=== PATIENT | male | born 1985 | race African-American/Black ===

== ENCOUNTER 2018-08-08 10:58 | Inpatient (IN) ==
[2018-08-08] MEDS ORDERED: FUROSEMIDE 100 MG/10 ML VIAL IV STA (12:01)
[2018-08-08] MEDS ORDERED: FUROSEMIDE 20 MG/2 ML VIAL ONE (12:12)
[2018-08-08] MEDS ORDERED: FUROSEMIDE 40 MG/4 ML VIAL ONE (12:12)
[2018-08-08] MEDS ORDERED: hydrALAZINE 20 MG/1 ML VIAL IV STA (12:12)
[2018-08-08] MEDS ORDERED: hydrALAZINE 20 MG/1 ML VIAL ONE (12:12)
[2018-08-08 12:35] LABS: Basophils % 0.1 % (0.0-0.8); Eosinophils # 0.2 10*3/uL (0.0-0.87); Eosinophils % 2.5 % (0.00-10.9); Hemoglobin 10.7 GM/DL (14.0-18.0); Immature Granulocytes % 0.5 %; Immature Granulocytes Absolute 0.04 #; Lymphocytes # 1.6 10*3/uL (1.4-4.0); Lymphocytes % 19.8 % (21.2-54.2); Mean Corpuscular HGB Conc 28.9 GM/DL (32-36); Mean Corpuscular Hemoglobin 22 PG (27-34); Mean Corpuscular Volume 77.2 FL (87-102); Mean Platelet Volume 10.8 FL (9.6-12.0); Monocytes # 0.6 10*3/uL (0.11-0.8); Monocytes % 7.2 % (1.7-12.7); Neutrophils # 5.6 10*3/uL (1.4-7.4); Neutrophils % 69.9 % (38.7-73.9); Platelet Count 299 T/CUMM (130-400); Red Blood Count 4.79 MC/CUMM (3.8-5.5); White Blood Count 7.9 T/CUMM (4-12)
[2018-08-08 12:36] LABS: Bilirubin,Total 0.7 MG/DL (0.2-1.0); Calcium 8.4 MG/DL (8.5-10.1); Osmolality,Calculated 276.5 MOS/KG (273-304); Potassium 4.1 MMOL/L (3.5-5.1); Total Protein 8.4 G/DL (6.4-8.3)
[2018-08-08] MEDS ORDERED: niCARdipine 25 MG/10 ML VIAL IV ONE ×2 (13:36→16:22)
[2018-08-08] MEDS: niCARdipine INJ 25 MG in SODIUM CHLORIDE 0.9% 240 ML IV SCH (13:41)
[2018-08-08] MEDS ORDERED: ONDANSETRON 4 MG/2 ML VIAL IV PRN (15:47)
[2018-08-08] MEDS ORDERED: ACETAMINOPHEN 325 MG TABLET PO PRN (15:47)
[2018-08-08] MEDS: niCARdipine INJ 25 MG in SODIUM CHLORIDE 0.9% 240 ML IV PRN ×2 (16:30→22:15)
[2018-08-08] MEDS ORDERED: ALBUTEROL 2.5 MG/3 ML NEB RESP TX PRN (16:53)
[2018-08-09 03:20] LABS: Apearance,Urine CLEAR (Clear); Bilirubin,Urine Negative (Negative); Blood, Urine Negative (Negative); Glucose,Urine (UA) Negative (Negative); Ketones,Urine Negative (Negative); Nitrite,Urine Negative (Negative); Protein,Urine Negative; RBC,Urine <1 /HPF (0-4); Urine Color Straw (Yellow); Urine Specific Gravity 1.008 (1.001-1.035); Urine Urobilinogen < 2.0 EU/DL (0.2-1.0)
[2018-08-09] MEDS: niCARdipine INJ 25 MG in SODIUM CHLORIDE 0.9% 240 ML IV PRN (04:18)
[2018-08-09 06:03] LABS: Basophils % 0.5 % (0.0-0.8); Eosinophils # 0.2 10*3/uL (0.0-0.87); Eosinophils % 2.3 % (0.00-10.9); Hematocrit 37.5 VOL% (42.0-52.0); Immature Granulocytes % 0.6 %; Immature Granulocytes Absolute 0.05 #; Lymphocytes # 1.8 10*3/uL (1.4-4.0); Lymphocytes % 20.3 % (21.2-54.2); Mean Corpuscular HGB Conc 29.6 GM/DL (32-36); Mean Corpuscular Hemoglobin 22 PG (27-34); Mean Corpuscular Volume 75.6 FL (87-102); Mean Platelet Volume 10.7 FL (9.6-12.0); Monocytes # 0.7 10*3/uL (0.11-0.8); Monocytes % 8.5 % (1.7-12.7); Neutrophils # 5.9 10*3/uL (1.4-7.4); Neutrophils % 67.8 % (38.7-73.9); Platelet Count 318 T/CUMM (130-400); Red Blood Count 4.96 MC/CUMM (3.8-5.5); Red Cell Distribution Width 16.3 % (9.3-17.3); White Blood Count 8.7 T/CUMM (4-12)
[2018-08-09 06:04] LABS: Hemoglobin 11.1 GM/DL (14.0-18.0)
[2018-08-09 06:29] LABS: Albumin 2.9 G/DL (3.4-5.0); Bilirubin,Total 1.3 MG/DL (0.2-1.0); Calcium 8.2 MG/DL (8.5-10.1); Osmolality,Calculated 273.8 MOS/KG (273-304); Potassium 3.5 MMOL/L (3.5-5.1); Risk Ratio 2.95; Thyroid Stimulating Hormone 1.21 uIU/ml (0.358-3.74); Total Protein 8.8 G/DL (6.4-8.3); VLDL CHOLESTEROL 11.4 MG/DL
[2018-08-09] MEDS ORDERED: LISINOPRIL 10 MG TABLET PO SCH (09:00)
[2018-08-09] MEDS ORDERED: LISINOPRIL 20 MG TABLET PO SCH (09:00)
[2018-08-09] MEDS: hydroCHLOROthiazide 25 MG TABLET PO SCH (09:33)
[2018-08-09] MEDS: FUROSEMIDE 40 MG/4 ML VIAL IV SCH (09:34)
[2018-08-09] MEDS: VALSARTAN 160 MG TABLET PO SCH (09:34)
[2018-08-09] MEDS: PANTOPRAZOLE 40 MG TABLET PO SCH (09:34)
[2018-08-09] MEDS: niCARdipine INJ 25 MG in SODIUM CHLORIDE 0.9% 240 ML IV SCH (11:30)
[2018-08-09] MEDS ORDERED: cloNIDine 0.1 MG TABLET PO SCH (16:00)
[2018-08-09] MEDS ORDERED: cloNIDine 0.1 MG TABLET PO PRN (16:34)
[2018-08-09] MEDS ORDERED: VALSARTAN 160 MG TABLET PO ONE (18:54)
[2018-08-09] MEDS ORDERED: hydrALAZINE 20 MG/1 ML VIAL IV ONE (18:54)
[2018-08-09] MEDS: CARVEDILOL 12.5 MG TABLET PO SCH (21:55)
[2018-08-10 06:25] LABS: Bilirubin,Total 1.2 MG/DL (0.2-1.0); Calcium 8.9 MG/DL (8.5-10.1); Osmolality,Calculated 273.1 MOS/KG (273-304); Potassium 3.7 MMOL/L (3.5-5.1); Total Protein 9.2 G/DL (6.4-8.3)
[2018-08-10 06:42] LABS: Basophils % 0.3 % (0.0-0.8); Eosinophils # 0.2 10*3/uL (0.0-0.87); Eosinophils % 2.8 % (0.00-10.9); Immature Granulocytes % 0.4 %; Immature Granulocytes Absolute 0.03 #; Lymphocytes # 1.5 10*3/uL (1.4-4.0); Lymphocytes % 22.3 % (21.2-54.2); Mean Corpuscular HGB Conc 29.8 GM/DL (32-36); Mean Corpuscular Hemoglobin 22 PG (27-34); Mean Corpuscular Volume 74.8 FL (87-102); Mean Platelet Volume 10.5 FL (9.6-12.0); Monocytes # 0.6 10*3/uL (0.11-0.8); Monocytes % 8.4 % (1.7-12.7); Neutrophils # 4.5 10*3/uL (1.4-7.4); Neutrophils % 65.8 % (38.7-73.9); Platelet Count 361 T/CUMM (130-400); Red Blood Count 5.48 MC/CUMM (3.8-5.5); Red Cell Distribution Width 16.2 % (9.3-17.3); White Blood Count 6.9 T/CUMM (4-12)
[2018-08-10 06:48] LABS: Hemoglobin 12.2 GM/DL (14.0-18.0)
[2018-08-10] MEDS: VALSARTAN 160 MG TABLET PO SCH (08:26)
[2018-08-10] MEDS: CARVEDILOL 12.5 MG TABLET PO SCH (08:26)
[2018-08-10] MEDS: PANTOPRAZOLE 40 MG TABLET PO SCH (08:26)
[2018-08-10] MEDS: hydroCHLOROthiazide 25 MG TABLET PO SCH (08:26)
[2018-08-10] MEDS: FUROSEMIDE 40 MG/4 ML VIAL IV SCH (08:27)
[2018-08-10 11:29] VITALS: BP 137/75
== END 2018-08-10 12:31 | disposition home or self-care (01) | DRG 292 ==
LOC: N.ED 10:58 → N.EDINP 14:56 → SUATTDRO 14:56 → N.TELEN 16:25
PROVIDERS: ADMIT Internal Medicine; ATTEND Internal Medicine Nephrology

== ENCOUNTER 2021-01-20 14:06 | Inpatient (IN) ==
[2021-01-20] MEDS ORDERED: LABETALOL 20 MG/4 ML SYRINGE IV STA ×2 (16:08→17:19)
[2021-01-20] MEDS ORDERED: SODIUM CHLORIDE 0.9% 500 ML IV STA (16:08)
[2021-01-20 17:13] LABS: Albumin 1.9 G/DL (3.4-5.0); Bilirubin,Total 1.2 MG/DL (0.2-1.0); Calcium 8.6 MG/DL (8.5-10.1); Osmolality,Calculated 269.2 MOS/KG (273-304); Potassium 4.4 MMOL/L (3.5-5.1); Total Protein 9.4 G/DL (6.4-8.2)
[2021-01-20 17:19] LABS: Basophils # 0.1 10*3/uL (0.0-0.2); Basophils % 0.3 % (0.0-0.8); Eosinophils # 0.1 10*3/uL (0.0-0.87); Eosinophils % 0.3 % (0.00-10.9); Hematocrit 32.3 VOL% (42.0-52.0); Hemoglobin 8.9 GM/DL (14.0-18.0); Immature Granulocytes % 1.4 %; Immature Granulocytes Absolute 0.34 #; Lymphocytes # 1.6 10*3/uL (1.4-4.0); Lymphocytes % 6.8 % (21.2-54.2); Mean Corpuscular HGB Conc 27.6 GM/DL (32-36); Monocytes % 8.1 % (1.7-12.7); NRBC # 0.03 10*3/uL; Neutrophils % 83.1 % (38.7-73.9); Platelet Count 456 T/CUMM (130-400); Red Blood Count 4.68 MC/CUMM (3.8-5.5); Red Cell Distribution Width 19.9 % (9.3-17.3); White Blood Count 23.9 T/CUMM (4-12)
[2021-01-20] MEDS ORDERED: LABETALOL 100 MG/20 ML VIAL IV ONE (17:21)
[2021-01-20] MEDS ORDERED: VANCOMYCIN INJ 1,000 MG in SODIUM CHLORIDE 0.9% 250 ML IV STA ×2 (18:56→19:55)
[2021-01-20 19:23] LABS: Hypochromasia 1+; Lymphocytes 6 % (20-55); Microcytosis 2+; Polychromasia Few; Segmented Neutrophils 89 % (50-85); Total Cells Counted 100; Toxic Granulation 1+
[2021-01-20 19:24] LABS: Platelet Estimate Increased
[2021-01-20] MEDS ORDERED: carvediloL 25 MG TABLET PO STA (19:30)
[2021-01-20] MEDS ORDERED: DEXTROSE 50% 25 GM/50 ML VIAL IV PRN (19:40)
[2021-01-20] MEDS ORDERED: GLUCAGON 1 MG VIAL IM PRN (19:40)
[2021-01-20] MEDS ORDERED: ONDANSETRON 4 MG/2 ML VIAL IV PRN (19:40)
[2021-01-20] MEDS ORDERED: hydrALAZINE 20 MG/1 ML VIAL IV PRN (19:47)
[2021-01-20] MEDS ORDERED: LABETALOL 20 MG/4 ML SYRINGE IV PRN (20:50)
[2021-01-20] MEDS: ENOXAPARIN 40 MG/0.4 ML SYRINGE SUBCUT SCH (20:50)
[2021-01-20] MEDS: cefTRIAXone 2,000 MG in SODIUM CHLORIDE 0.9% 100 ML IV SCH (20:51)
[2021-01-20] MEDS ORDERED: cloNIDine 0.1 MG TABLET PO SCH (21:00)
[2021-01-20] MEDS ORDERED: hydrALAZINE 25 MG TABLET PO SCH (21:00)
[2021-01-20] MEDS: INSULIN LISPRO 100 UNIT/ML SUBCUT SCH (23:32)
[2021-01-21] MEDS: DOCUSATE SODIUM 100 MG CAPSULE PO SCH ×3 (02:15→21:57)
[2021-01-21 07:12] LABS: Basophils # 0.1 10*3/uL (0.0-0.2); Basophils % 0.2 % (0.0-0.8); Eosinophils # 0.1 10*3/uL (0.0-0.87); Eosinophils % 0.4 % (0.00-10.9); Hematocrit 30.2 VOL% (42.0-52.0); Immature Granulocytes Absolute 0.51 #; Lymphocytes # 2.2 10*3/uL (1.4-4.0); Lymphocytes % 8.6 % (21.2-54.2); Mean Corpuscular HGB Conc 26.5 GM/DL (32-36); Mean Corpuscular Volume 70.6 FL (87-102); Monocytes % 7.5 % (1.7-12.7); NRBC # 0.05 10*3/uL; Neutrophils % 81.3 % (38.7-73.9); Platelet Count 444 T/CUMM (130-400); Red Blood Count 4.28 MC/CUMM (3.8-5.5); Red Cell Distribution Width 19.6 % (9.3-17.3); White Blood Count 25.8 T/CUMM (4-12)
[2021-01-21 07:15] LABS: Band Neutrophils 1 % (0-10); Lymphocytes 9 % (20-55); Platelet Estimate Adequate; Segmented Neutrophils 88 % (50-85); Total Cells Counted 100
[2021-01-21 07:16] LABS: Hypochromasia 1+; Microcytosis 1+
[2021-01-21 07:44] LABS: Calcium 8.1 MG/DL (8.5-10.1); Osmolality,Calculated 271.4 MOS/KG (273-304); Potassium 3.9 MMOL/L (3.5-5.1); Risk Ratio 5.06; Thyroid Stimulating Hormone 1.16 uIU/ml (0.358-3.74); VLDL CHOLESTEROL 16.6 MG/DL
[2021-01-21] MEDS ORDERED: CHLORTHALIDONE 25 MG TABLET PO SCH (09:00)
[2021-01-21] MEDS: INSULIN LISPRO 100 UNIT/ML SUBCUT SCH ×4 (09:00→21:58)
[2021-01-21] MEDS ORDERED: VANCOMYCIN INJ 2,000 MG in SODIUM CHLORIDE 0.9% 500 ML IV SCH (09:00)
[2021-01-21] MEDS ORDERED: cloNIDine 0.1 MG TABLET PO SCH (09:00)
[2021-01-21] MEDS: carvediloL 25 MG TABLET PO SCH ×2 (09:04→21:57)
[2021-01-21] MEDS: hydrALAZINE 25 MG TABLET PO SCH ×2 (09:04→21:57)
[2021-01-21] MEDS: SODIUM HYPOCHLORITE 0.25% IRRIG 473 ML BOTTLE TOP SCH (18:01)
[2021-01-21] MEDS: ENOXAPARIN 40 MG/0.4 ML SYRINGE SUBCUT SCH (21:59)
[2021-01-21] MEDS: cefTRIAXone 2,000 MG in SODIUM CHLORIDE 0.9% 100 ML IV SCH (22:00)
[2021-01-21] MEDS: VANCOMYCIN INJ 2,000 MG in SODIUM CHLORIDE 0.9% 500 ML IV SCH (23:13)
[2021-01-22 06:00] LABS: Calcium 8.7 MG/DL (8.5-10.1); Osmolality,Calculated 273.4 MOS/KG (273-304); Potassium 3.9 MMOL/L (3.5-5.1)
[2021-01-22 06:33] LABS: Basophils % 0.2 % (0.0-0.8); Eosinophils # 0.2 10*3/uL (0.0-0.87); Eosinophils % 1.2 % (0.00-10.9); Hematocrit 30.9 VOL% (42.0-52.0); Hemoglobin 8.2 GM/DL (14.0-18.0); Immature Granulocytes % 2.1 %; Immature Granulocytes Absolute 0.43 #; Lymphocytes % 9.7 % (21.2-54.2); Mean Corpuscular HGB Conc 26.5 GM/DL (32-36); Mean Platelet Volume 10.3 FL (9.6-12.0); Monocytes % 5.9 % (1.7-12.7); NRBC # 0.05 10*3/uL; Neutrophils % 80.9 % (38.7-73.9); Platelet Count 436 T/CUMM (130-400); Red Blood Count 4.35 MC/CUMM (3.8-5.5); Red Cell Distribution Width 19.8 % (9.3-17.3); White Blood Count 20.2 T/CUMM (4-12)
[2021-01-22 06:41] LABS: Hypochromasia 2+; Lymphocytes 7 % (20-55); Microcytosis 1+; Platelet Estimate Adequate; Segmented Neutrophils 88 % (50-85); Total Cells Counted 100
[2021-01-22] MEDS: DOCUSATE SODIUM 100 MG CAPSULE PO SCH ×2 (08:36→21:17)
[2021-01-22] MEDS: CHOLECALCIFEROL 1,000 UNIT TABLET PO SCH (08:36)
[2021-01-22] MEDS: hydrALAZINE 25 MG TABLET PO SCH ×2 (08:36→21:17)
[2021-01-22] MEDS: INSULIN LISPRO 100 UNIT/ML SUBCUT SCH ×4 (08:36→21:18)
[2021-01-22] MEDS: VANCOMYCIN INJ 2,000 MG in SODIUM CHLORIDE 0.9% 500 ML IV SCH ×2 (08:37→21:18)
[2021-01-22] MEDS: carvediloL 25 MG TABLET PO SCH ×2 (08:37→21:18)
[2021-01-22] MEDS: SODIUM HYPOCHLORITE 0.25% IRRIG 473 ML BOTTLE TOP SCH (08:50)
[2021-01-22] MEDS ORDERED: FUROSEMIDE 20 MG/2 ML VIAL IV ONE (11:00)
[2021-01-22] MEDS: cefTRIAXone 2,000 MG in SODIUM CHLORIDE 0.9% 100 ML IV SCH (20:00)
[2021-01-23 05:50] LABS: Calcium 8.5 MG/DL (8.5-10.1); Osmolality,Calculated 274.1 MOS/KG (273-304)
[2021-01-23 05:59] LABS: Basophils % 0.2 % (0.0-0.8); Eosinophils # 0.3 10*3/uL (0.0-0.87); Eosinophils % 1.8 % (0.00-10.9); Hematocrit 28.7 VOL% (42.0-52.0); Immature Granulocytes % 2.2 %; Immature Granulocytes Absolute 0.38 #; Lymphocytes % 11.5 % (21.2-54.2); Mean Corpuscular HGB Conc 27.9 GM/DL (32-36); Mean Platelet Volume 10.3 FL (9.6-12.0); Monocytes % 6.5 % (1.7-12.7); NRBC # 0.03 10*3/uL; Neutrophils % 77.8 % (38.7-73.9); Platelet Count 449 T/CUMM (130-400); Red Blood Count 4.16 MC/CUMM (3.8-5.5); White Blood Count 17.1 T/CUMM (4-12)
[2021-01-23 06:15] LABS: Hypochromasia 2+; Microcytosis 1+; Ovalocytes Slight; Polychromasia Slight
[2021-01-23 06:16] LABS: Platelet Estimate Increased
[2021-01-23] MEDS: VANCOMYCIN INJ 2,000 MG in SODIUM CHLORIDE 0.9% 500 ML IV SCH ×2 (08:43→21:24)
[2021-01-23] MEDS: INSULIN LISPRO 100 UNIT/ML SUBCUT SCH ×4 (09:38→20:52)
[2021-01-23] MEDS ORDERED: LIDOCAINE 1% 20 ML VIAL ONE (09:46)
[2021-01-23] MEDS ORDERED: LIDOCAINE 1%/EPI INJ 20 ML VIAL ONE (09:46)
[2021-01-23] MEDS ORDERED: LACTATED RINGERS 1,000 ML IV SCH (10:00)
[2021-01-23] MEDS ORDERED: MIDAZOLAM 2 MG/2 ML VIAL ONE (10:05)
[2021-01-23] MEDS ORDERED: fentaNYL 100 MCG/2 ML VIAL ONE ×2 (10:05→10:40)
[2021-01-23] MEDS ORDERED: LIDOCAINE 2% 5 ML VIAL ONE (10:40)
[2021-01-23] MEDS ORDERED: propofoL 200 MG/20 ML VIAL IV ONE (10:40)
[2021-01-23] MEDS ORDERED: SEVOFLURANE 1 UNIT/15 MINUTE INH ONE (10:40)
[2021-01-23] MEDS: carvediloL 25 MG TABLET PO SCH ×2 (12:10→20:51)
[2021-01-23] MEDS: CHLORTHALIDONE 25 MG TABLET PO SCH (12:10)
[2021-01-23] MEDS: CHOLECALCIFEROL 1,000 UNIT TABLET PO SCH (12:10)
[2021-01-23] MEDS: hydrALAZINE 25 MG TABLET PO SCH ×2 (12:10→20:51)
[2021-01-23] MEDS: DOCUSATE SODIUM 100 MG CAPSULE PO SCH ×2 (12:10→20:52)
[2021-01-23] MEDS: SODIUM HYPOCHLORITE 0.25% IRRIG 473 ML BOTTLE TOP SCH (12:24)
[2021-01-23] MEDS: cefTRIAXone 2,000 MG in SODIUM CHLORIDE 0.9% 100 ML IV SCH (20:52)
[2021-01-23] MEDS ORDERED: PHENOL 1.4% THROAT SPRAY 177 ML BOTTLE PO PRN (21:59)
[2021-01-24 05:35] LABS: Basophils # 0.1 10*3/uL (0.0-0.2); Basophils % 0.3 % (0.0-0.8); Eosinophils # 0.3 10*3/uL (0.0-0.87); Eosinophils % 2.1 % (0.00-10.9); Hematocrit 29.8 VOL% (42.0-52.0); Hemoglobin 8.1 GM/DL (14.0-18.0); Immature Granulocytes % 2.1 %; Immature Granulocytes Absolute 0.33 #; Lymphocytes # 1.7 10*3/uL (1.4-4.0); Lymphocytes % 10.8 % (21.2-54.2); Mean Corpuscular HGB Conc 27.2 GM/DL (32-36); Mean Corpuscular Volume 69.8 FL (87-102); Mean Platelet Volume 10.1 FL (9.6-12.0); Monocytes % 6.8 % (1.7-12.7); NRBC # 0.02 10*3/uL; Neutrophils % 77.9 % (38.7-73.9); Platelet Count 452 T/CUMM (130-400); Red Blood Count 4.27 MC/CUMM (3.8-5.5); Red Cell Distribution Width 20.2 % (9.3-17.3); White Blood Count 15.6 T/CUMM (4-12)
[2021-01-24 05:53] LABS: Calcium 8.3 MG/DL (8.5-10.1); Hypochromasia 2+; Microcytosis 1+; Osmolality,Calculated 268.4 MOS/KG (273-304); Potassium 3.9 MMOL/L (3.5-5.1)
[2021-01-24 05:54] LABS: Polychromasia Slight; Target Cells Slight
[2021-01-24 05:55] LABS: Platelet Estimate Increased
[2021-01-24] MEDS: INSULIN LISPRO 100 UNIT/ML SUBCUT SCH ×4 (08:04→20:55)
[2021-01-24] MEDS: CHOLECALCIFEROL 1,000 UNIT TABLET PO SCH (08:40)
[2021-01-24] MEDS: hydrALAZINE 25 MG TABLET PO SCH ×2 (08:41→20:54)
[2021-01-24] MEDS: DOCUSATE SODIUM 100 MG CAPSULE PO SCH ×2 (08:41→20:54)
[2021-01-24] MEDS: carvediloL 25 MG TABLET PO SCH ×2 (08:41→20:55)
[2021-01-24] MEDS: CHLORTHALIDONE 25 MG TABLET PO SCH (08:41)
[2021-01-24] MEDS: VANCOMYCIN INJ 2,000 MG in SODIUM CHLORIDE 0.9% 500 ML IV SCH (08:42)
[2021-01-24] MEDS: SODIUM HYPOCHLORITE 0.25% IRRIG 473 ML BOTTLE TOP SCH (16:52)
[2021-01-24] MEDS: CIPROFLOXACIN 500 MG TABLET PO SCH (20:54)
[2021-01-24] MEDS: PENICILLIN VK 500 MG TABLET PO SCH (20:55)
[2021-01-25 05:37] LABS: Calcium 8.2 MG/DL (8.5-10.1); Osmolality,Calculated 273.1 MOS/KG (273-304); Potassium 4.1 MMOL/L (3.5-5.1)
[2021-01-25 05:47] LABS: Basophils % 0.3 % (0.0-0.8); Eosinophils # 0.3 10*3/uL (0.0-0.87); Eosinophils % 2.2 % (0.00-10.9); Hematocrit 30.1 VOL% (42.0-52.0); Immature Granulocytes % 1.8 %; Immature Granulocytes Absolute 0.24 #; Lymphocytes # 1.7 10*3/uL (1.4-4.0); Lymphocytes % 12.4 % (21.2-54.2); Mean Corpuscular HGB Conc 26.6 GM/DL (32-36); Mean Corpuscular Volume 71.2 FL (87-102); Mean Platelet Volume 10.4 FL (9.6-12.0); Monocytes % 7.3 % (1.7-12.7); NRBC # 0.02 10*3/uL; Platelet Count 462 T/CUMM (130-400); Red Blood Count 4.23 MC/CUMM (3.8-5.5); Red Cell Distribution Width 20.3 % (9.3-17.3); White Blood Count 13.4 T/CUMM (4-12)
[2021-01-25 06:33] LABS: Hypochromasia 3+; Platelet Estimate Increased; Polychromasia Few
[2021-01-25] MEDS: INSULIN LISPRO 100 UNIT/ML SUBCUT SCH ×2 (08:08→12:42)
[2021-01-25] MEDS: carvediloL 25 MG TABLET PO SCH (09:03)
[2021-01-25] MEDS: CIPROFLOXACIN 500 MG TABLET PO SCH (09:03)
[2021-01-25] MEDS: hydrALAZINE 25 MG TABLET PO SCH (09:03)
[2021-01-25] MEDS: CHLORTHALIDONE 25 MG TABLET PO SCH (09:03)
[2021-01-25] MEDS: DOCUSATE SODIUM 100 MG CAPSULE PO SCH (09:03)
[2021-01-25] MEDS: PENICILLIN VK 500 MG TABLET PO SCH (10:58)
[2021-01-25] MEDS: CHOLECALCIFEROL 1,000 UNIT TABLET PO SCH (10:58)
[2021-01-25] MEDS ORDERED: COLLAGENASE OINT 30 GM TUBE TOP SCH (11:00)
[2021-01-25 11:45] VITALS: BP 138/70
[2021-01-25] MEDS: SODIUM HYPOCHLORITE 0.25% IRRIG 473 ML BOTTLE TOP SCH (12:43)
== END 2021-01-25 15:48 | disposition home or self-care (01) | DRG 264 ==
LOC: N.ED 14:06 → N.EDINP 19:27 → N.5E 21:05
PROVIDERS: ADMIT Hospitalist; ATTEND Hospitalist